=== PATIENT | male | born 1945 | race Two or more races ===

== ENCOUNTER 2023-07-20 12:30 | Emergency (ER) | payer OTHER ==
[~2023-07-20] VITALS: Ht 167.6 cm; Wt 82.6 kg
[2023-07-20] VITALS (8 sets, daily range): BP systolic 114–139; BP diastolic 46–65; PULSE 73–88; RESP 10–27; TEMP 97.8–98; O2SAT 88–100
[2023-07-20 13:24] LABS: Alkaline Phosphatase 97 U/L (46-116); Anion Gap 6.8 (5-15); Aspartate Aminotransferase 11 U/L (13-40); BUN/Creatinine Ratio 14.5 (10.0-20.0); Blood Urea Nitrogen 11 mg/dL (9-23); Calcium 8.5 mg/dL (8.5-10.1); Carbon Dioxide 23.2 mmol/L (20-30); Chloride 102 mmol/L (98-107); Glucose 125 mg/dL (74-106); Potassium 4.1 mmol/L (3.5-5.1); Sodium 132 mmol/L (136-145)
[2023-07-20 13:25] LABS: Albumin 3.9 g/dL (3.2-4.8); Total Protein 6.3 g/dL (5.7-8.2)
[2023-07-20 13:37] LABS: Urine Bacteria NONE SEEN /hpf (None Seen); Urine Blood Negative /uL (Negative); Urine Clarity Clear (Clear); Urine Color Yellow (Yellow); Urine Protein, UAD Negative (Negative); Urine Specific Gravity 1.014 (1.001-1.035); Urine Urobilinogen Normal (Negative); Urine WBC <1 /hpf (0 - 3); Urine pH 5.5 (5.0-8.0)
[2023-07-20 13:43] LABS: Alanine Aminotransferase < 9 U/L (7-40)
[2023-07-20 13:54] LABS: Hematocrit 14.1 % (41.0-53.0); Red Blood Cells 1.46 10^6/uL (4.5-5.90)
[2023-07-20 13:56] LABS: Mean Corpuscular Hemoglobin 32.4 pg (28.0-32.0); Mean Corpuscular Hgb Conc. 33.6 g/dL (32.0-36.0); Mean Corpuscular Volume 96.3 fL (80.0-100.0)
[2023-07-20] MEDS ORDERED: FUROSEMIDE 40 MG/4 ML VIAL IV ONE (14:30)
[2023-07-20 15:03] LABS: INR 1.21 (0.9-1.15); Partial Thromboplastin Time 30.3 SEC (24.5-34.5); Prothrombin Time 12.5 sec (9.3-11.8)
[2023-07-20 15:09] LABS: Red Cell Distribution Width 22.2 % (11.8-14.3)
[2023-07-20 15:12] LABS: Hemoglobin 4.7 g/dL (13.5-17.5); White Blood Cell 1.4 10^3/uL (4.4-10.8)
[2023-07-20 15:13] LABS: Basophils % (manual) 0 (0.0-2.0); Blast Cells 0; Metamyelocytes % 0; Myelocytes % 0; Promyelocytes % 0; Reactive Lymphocytes 0
[2023-07-20 16:19] LABS: Band Neutrophils % (manual) 4; Eosinophils % (manual) 8 (0-7); Lymphocytes % (manual) 33 (10.0-50.0); Monocytes % (manual) 1 (0-12); Platelet Estimate Adequate
[2023-07-20 16:20] LABS: Anisocytosis Slight; Hypochromia Slight; Ovalocytes MANY; Stomatocytes Few
[2023-07-20 16:21] LABS: Tear Drop Cells FEW
[2023-07-20] MEDS ORDERED: fentaNYL CITRATE 100 MCG/2 ML VL IV ONE ×2 (18:45→20:00)
[2023-07-20] MEDS ORDERED: cefTRIAXone 1GM/50ML D5W 50 ML IV ONE (18:45)
== END 2023-07-20 21:56 | disposition short-term general hospital (02) ==
LOC: ER 12:30
DX: I50.9 Heart failure, unspecified (principal); J18.9 Pneumonia, unspecified organism; D64.9 Anemia, unspecified; Z87.891 Personal history of nicotine dependence
CPT/HCPCS: 36415; 36430; 71045; 74176; 76705; 80053; 81001; 83880; 84484; 85007; 85027; 85610; 85730; 86850; 86900; 86901; 86920; 93005; 93970; 96365; 96375; 99285; J0696; J1940; P9016